=== PATIENT | female | born 1995 | race Caucasian/White ===

== ENCOUNTER 2022-01-10 21:50 | Emergency (ER) | payer OTHER ==
[~2022-01-10] VITALS: Ht 160 cm; Wt 53.5 kg
[2022-01-10] MEDS ORDERED: ZYRTEC (22:23)
[2022-01-10] MEDS ORDERED: BENTYL (22:23)
== END 2022-01-11 06:46 | disposition home or self-care (01) ==
LOC: ER 21:50
DX: B34.9 Viral infection, unspecified (principal); R11.10 Vomiting, unspecified; R19.7 Diarrhea, unspecified; R10.84 Generalized abdominal pain; Z20.828 Contact with and (suspected) exposure to other viral communicable diseases